=== PATIENT | female | born 1965 | race Caucasian/White ===

== ENCOUNTER 2020-12-30 16:25 | Emergency (ER) | payer BC ==
[2020-12-30] MEDS: Bacitracin Oint 1 GM U/D Packet TOP ONE (16:30)
[2020-12-30] MEDS: Lidocaine 1% with EPINEPHrine 1:100,000 20 ML MDV INJECT ONE (16:40)
[2020-12-30] MEDS: Diphtheria,Pertussis(Acell),Tetanus Vaccine 0.5 ML SDV IM ONE (17:58)
[2020-12-30] MEDS ORDERED: Cephalexin 250 MG Cap ONE (18:00)
--- NOTE | 2020-12-30 18:12 | EDM.PDOC ---
ED HPI GENERAL MEDICAL PROBLEM - General Chief Complaint: Skin Complaint Stated Complaint: KNEE INJURY Time Seen by Provider: 12/30/20 16:25 Source of Information: Reports: Patient History Limitations: Reports: No Limitations - History of Present Illness INITIAL COMMENTS - FREE TEXT/NARRATIVE: Patient had a's trip and fall on a hiking trip causing a laceration to the right knee inferior to the joint line, midline approximately 1-1/2 x 1-1/2 90 degree angle laceration. Patient stated there was a moderate amount of blood that was controlled with direct pressure. Patient's irrigated the wound, and dressed it. Patient did not become dizzy lightheaded, patient did not strike her head neck or back, no loss of consciousness no other complaints. Positive for pain around wound site. Negative for joint edema, active bleeding, or limited range of motion. Injury occurred today within hours of presenting at the ER. Location: Reports: Lower Extremity, Right Quality: Reports: Sharp Severity: Mild - Related Data Allergies Allergy/AdvReac Type Severity Reaction Status Date / Time bee venom protein (honey bee) Allergy Hives Verified 12/30/20 17:42 Home Meds: Home Meds cephALEXin [Keflex] 250 mg PO Q8H 5 Days #15 cap 12/30/20 [Rx] ED ROS GENERAL - Review of Systems Review Of Systems: Comprehensive ROS is negative, except as noted in HPI. ED EXAM, SKIN/RASH Exam: See Below Text/Narrative:: Focused exam limited to palpation of the patient's head neck and back, and assessing the right knee joint, and laceration to right lower extremity. Exam Limited By: Other (Focused exam) General Appearance: Alert, WD/WN, No Apparent Distress Head: Atraumatic, Normocephalic Neck: Normal Inspection, Supple, Non-Tender, Full Range of Motion Respiratory/Chest: No Respiratory Distress Back Exam: Normal Inspection (Yes by Dr. Sandoval this is [facility] antibiotic [place] in the ER thank you 16-year-old female who showed who had an acute on set last night of lower abdominal pain bilateral fevers chills nausea vomiting near syncope not sexually active last menstrual cycle was the last week of November also complaining), Full Range of Motion, NT Extremities: Other (Patient has a 1-1/2 x 1-1/2 inch laceration that is a 90 degree angle. Bleeding is controlled prior to arrival to the ER. Wound was irrigated prior to arrival to the emergency room.) Neurological: Alert, Oriented, CN II-XII Intact, Normal Cognition, Normal Gait, Normal Reflexes, No Motor/Sensory Deficits Psychiatric: Normal Affect, Normal Mood Skin: Warm, Dry, Normal Color ED SKIN PROCEDURES - Laceration/Wound Repair Right Knee Appearance: Superficial, Subcutaneous Distal NVT: Neuro & Vascular Intact, No Tendon Injury Anesthetic Type: Local Local Anesthesia - Lidocaine (Xylocaine): 1% with EPI Local Anesthetic Volume: Other (6cc) Skin Prep: Chlorhexidine (Hibiciens), Providone-Iodine (Betadine) Saline Irrigation (cc's): 10 (Multiple times, patient wound was also scrubbed extensively with chlorhexidine.) Exploration/Debridement/Repair: Wound Explored, No Foreign Material Found, Wound Margins Revised Closed with: Sutures Lac/Wound length In cm: 3.8 (x 3.8) Suture Size: 3-0 # of Sutures: 5 (Additionally 4-0 Prolene were used for an additional 2 sutures for a total of 7) Suture Type: Prolene Course - Orders/Labs/Meds Orders: Active Orders 24 hr Category Date Time Status Vaccines to be Administered [RC] PER UNIT ROUTINE Care 12/30/20 17:43 Active Meds: Medications Discontinued Medications Generic Name Dose Route Start Last Admin Trade Name Kenneth PRN Reason Stop Dose Admin Diphtheria/Tetanus/Acell Pertussis 0.5 ml 12/30/20 17:43 12/30/20 17:58 Diphtheria,Pertussis(Acell),Tetanus Vaccine 0.5 Ml Sdv IM 12/30/20 17:44 0.5 ml .ONCE ONE Administration Departure - Departure Time of Disposition: 18:10 Disposition: Home, Self-Care 01 Condition: Good Clinical Impression: Laceration - Discharge Information *PRESCRIPTION DRUG MONITORING PROGRAM REVIEWED*: No *COPY OF PRESCRIPTION DRUG MONITORING REPORT IN PATIENT CHRISTIANO: No Prescriptions: cephALEXin [Keflex] 250 mg PO Q8H 5 Days #15 cap Instructions: Laceration Care, Adult, [id number] Forms: ED Department Discharge Additional Instructions: -Keep area clean and dry and leave dressing in place for 24 hours -Apply antibiotic ointment as needed and change dressing daily -See primary care provider in 14 days to remove sutures If you have any questions or concerns please call us at [phone] - My Orders Last 24 Hours: My Active Orders 12/30/20 17:43 Vaccines to be Administered [RC] PER UNIT ROUTINE - Assessment/Plan Last 24 Hours: My Active Orders 12/30/20 17:43 Vaccines to be Administered [RC] PER UNIT ROUTINE
== END 2020-12-30 18:10 | disposition home or self-care (01) ==
LOC: LB.ED 16:25
DX: S81.011A Laceration without foreign body, right knee, initial encounter (principal); Z23 Encounter for immunization; Z91.030 Bee allergy status; W01.0XXA Fall on same level from slipping, tripping and stumbling without subsequent striking against object, initial encounter
CPT/HCPCS: 12004; 90471; 90715; 99282; A9270